=== PATIENT | female | born 1940 | race Caucasian/White ===

== ENCOUNTER 2018-09-05 08:23 | Day surgery (SDC) | payer MEDICARE, BC ==
[~2018-09-05] VITALS: Ht 152.4 cm; Wt 65.6 kg
[2018-09-05] MEDS ORDERED: FLUR30CA13 PO (09:03)
[2018-09-05] MEDS ORDERED: BENZ-16 PO (09:03)
[2018-09-05 09:12] VITALS: BP 120/81
[2018-09-05] MEDS ORDERED: iohexol 300 MG/1 ML 50ml polymer ONE (10:06)
[2018-09-05] MEDS ORDERED: heparin sodium, porcine/PF 100unit/ml 5ML syringe ONE (10:22)
--- NOTE | 2018-09-05 10:55 | NUR ---
bp 109/76, 85hr, 95%, RR 16. No sedation given. Pt ambulated to hospital entrance and was discharged home with her daughter. Pt had all belongings.
== END 2018-09-05 10:55 | disposition home or self-care (01) ==
LOC: SSTAY O 08:23
PROVIDERS: ATTEND Radiology Diagnostic Radiology
DX: Z45.2 Encounter for adjustment and management of vascular access device (principal); C50.911 Malignant neoplasm of unspecified site of right female breast; C50.912 Malignant neoplasm of unspecified site of left female breast; M81.0 Age-related osteoporosis without current pathological fracture; K21.9 Gastro-esophageal reflux disease without esophagitis; M19.90 Unspecified osteoarthritis, unspecified site; F41.8 Other specified anxiety disorders; Z87.19 Personal history of other diseases of the digestive system; Z87.891 Personal history of nicotine dependence; Z85.43 Personal history of malignant neoplasm of ovary; Z85.72 Personal history of non-Hodgkin lymphomas; Z92.21 Personal history of antineoplastic chemotherapy; Z87.42 Personal history of other diseases of the female genital tract; Z90.13 Acquired absence of bilateral breasts and nipples; Z95.828 Presence of other vascular implants and grafts; Z88.2 Allergy status to sulfonamides; Z85.118 Personal history of other malignant neoplasm of bronchus and lung; Z79.899 Other long term (current) drug therapy; Z98.890 Other specified postprocedural states
CPT/HCPCS: 36598; J1642; Q9967